=== PATIENT | female | born 1950 | race Caucasian/White ===

== ENCOUNTER 2017-11-29 09:06 | Emergency (ER) | payer OTHER ==
[~2017-11-29] VITALS: Ht 157.5 cm; Wt 86.6 kg
--- NOTE | ~2017-11-29 | EKG ---
[address] [place] [address] ELECTROCARDIOGRAM REPORT Name: DANNA ARCHULETA [facility] [id number] Admission: 11/29/17 Attend Phys: Discharge: 11/29/17 Date of : 46 Report #: [id number] THIS REPORT FOR: //name// 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 11/29/17 1632 1242 1242 Jimenez Burris MD, FACC /EPI
[2017-11-29 11:33] LABS: URINE BILIRUBIN NEGATIVE (Negative); URINE BLOOD NEGATIVE (Negative); URINE CLARITY CLEAR; URINE COLOR YELLOW; URINE GLUCOSE-RANDOM* NEGATIVE (Negative); URINE KETONES NEGATIVE (Negative); URINE LEUKOCYTES NEGATIVE (Negative); URINE NITRITE NEGATIVE (Negative); URINE PROTEIN (DIPSTICK) NEGATIVE (Negative); URINE SPECIFIC GRAVITY <= 1.005 (1.005-1.035); URINE UROBILINOGEN 0.2 E.U./dl (0.2-1.0)
[2017-11-29 13:03] LABS: BASOPHILS 0.8 % (0.0-2.0); EOSINOPHILS 1.8 % (0.0-3.0); HEMOGLOBIN 13.1 gm/dL (12.0-15.0); LYMPHOCYTES 43.8 % (24.0-44.0); MCH 31.4 pg (26.0-34.0); MCHC 33.5 g/dL (28.0-37.0); MCV 93.6 fL (80.0-100.0); PLATELET COUNT 247 thou/uL (150-400); POLYS 43.6 % (36.0-66.0); RBC 4.16 mil/uL (4.20-5.00); WBC 4.7 thou/uL (4.0-11.0)
[2017-11-29 13:12] LABS: CALCIUM 8.4 mg/dL (8.5-10.1); CREATININE 0.7 mg/dL (0.6-1.0)
[2017-11-29 13:18] LABS: ALBUMIN 3.3 g/dL (3.4-5.0); TOTAL BILIRUBIN 0.9 mg/dL (<0.1-1.0); TOTAL PROTEIN 6.5 g/dL (6.4-8.2)
[2017-11-29] MEDS ORDERED: BUTALB-APAP-CA1 EACH PO (13:38)
== END 2017-11-29 13:54 | disposition home or self-care (01) ==
LOC: ER 09:06
PROVIDERS: Nurse Practitioner Family
DX: R51 Headache (principal); G89.29 Other chronic pain; R10.9 Unspecified abdominal pain; I10 Essential (primary) hypertension; Z90.710 Acquired absence of both cervix and uterus

== ENCOUNTER 2017-12-05 22:32 | Emergency (ER) | payer OTHER ==
[~2017-12-05] VITALS: Ht 157.5 cm; Wt 86.6 kg
--- NOTE | ~2017-12-05 | EKG ---
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1950 Requested By: Tonio Marley Order Number: [id number] MD: Jimenez Burris Measurements Intervals [place] Rate: 78 P: 3 [place]: 144 QRS: -17 QRSD: 95 T: 16 QT: 396 QTc: 452 Interpretive Statements Sinus rhythm No significant abnormality Compared to ECG 11/29/2017 12:42:02 No significant changes Electronically Signed On 12-06-2017 8:11:14 [employer] SUPERVIS[employer] by Jimenez Burris [email or web address] <ELECTRONICALLY SIGNED> By: Jimenez Burris MD, [facility] 12/06/17 0811 2318 2318 Jimenez Burris MD, FACC /EPI
[~2017-12-05 22:32] MED LIST: BUTALB-APAP-CA1 EACH PO
[2017-12-05 23:54] LABS: HEMOGLOBIN 14.2 gm/dL (12.0-15.0); MCH 31.6 pg (26.0-34.0); MCHC 33.9 g/dL (28.0-37.0); MCV 93.3 fL (80.0-100.0); RBC 4.5 mil/uL (4.20-5.00); RDW 14.3 % (10.5-14.5)
[2017-12-06 00:01] LABS: ANION GAP 8 mmol/L (7-16); BUN 16 mg/dL (7-18); CALCIUM 9.8 mg/dL (8.5-10.1); CHLORIDE 100 mmol/L (98-107); CO2 32 mmol/L (21-32); CREATININE 0.8 mg/dL (0.6-1.0); GLUCOSE 117 mg/dL (74-106); SODIUM 140 mmol/L (136-145)
[2017-12-06] MEDS ORDERED: BENAZEPRIL-HCT1 EA11 PO (00:10)
[2017-12-06] MEDS ORDERED: OMEPRAZOLE40 MG PO (00:10)
[2017-12-06 00:11] LABS: ALBUMIN 3.9 g/dL (3.4-5.0); LIPASE 199 U/L (73-393); SGOT 14 U/L (15-37); SGPT 24 U/L (30-65); TOTAL BILIRUBIN 0.5 mg/dL (<0.1-1.0); TOTAL PROTEIN 7.8 g/dL (6.4-8.2); TROPONIN-I < 0.04 ng/mL (<0.06)
== END 2017-12-06 00:50 | disposition home or self-care (01) ==
LOC: ER 22:32
PROVIDERS: Emergency Medicine
DX: R10.13 Epigastric pain (principal); I10 Essential (primary) hypertension; Z90.710 Acquired absence of both cervix and uterus

== ENCOUNTER → 2018-07-20 | Outpatient (CLI) | payer OTHER ==
[~2018-07-20] MED LIST changes: +BENAZEPRIL-HCT1 EA11 PO; +OMEPRAZOLE40 MG PO
== END ==
LOC: RAD 09:59
DX: M47.816 Spondylosis without myelopathy or radiculopathy, lumbar region (principal); M47.814 Spondylosis without myelopathy or radiculopathy, thoracic region; M47.812 Spondylosis without myelopathy or radiculopathy, cervical region; M41.86 Other forms of scoliosis, lumbar region; M48.02 Spinal stenosis, cervical region; M48.04 Spinal stenosis, thoracic region; M25.78 Osteophyte, vertebrae; G89.29 Other chronic pain; I10 Essential (primary) hypertension

== ENCOUNTER → 2018-07-27 | Outpatient (CLI) | payer OTHER | LOC: RAD 08:41 | DX: Z12.31 Encounter for screening mammogram for malignant neoplasm of breast (principal) ==

== ENCOUNTER → 2018-08-17 | Outpatient (CLI) | payer OTHER ==
--- NOTE | ~2018-08-17 | SLE ---
[facility] [place] [address] POLYSOMNOGRAPHY STUDY Name: DANNA ARCHULETA Room [facility]#: [id number] Admission: 08/17/18 Attend Phys: Augusto Myers MD Discharge: Date of : 46 Report #: [id number] THIS REPORT FOR: //name// CC: Augusto Dias MD DATE OF SERVICE: 08/18/2018 ATTENDING PHYSICIAN: Dr. Drake Dias. The patient is 68 years old who weighs 180 pounds and 63 inches tall with a BMI of 31.9. The patient's [place] score was not available. Sleep study was performed at [facility]. This was a diagnostic study. During the night study, the patient spent 505 minutes in bed and slept for 384 minutes with a sleep efficiency of 76%. Sleep latency was 63.3 minutes with a REM latency of 106 minutes. Overall, sleep architecture showed normal stage 1 sleep, increased stage 2 sleep, normal slow wave and reduced REM sleep, which was 15% of the total sleep time. During the night study, the patient had no apneas and 15 hypopneas. The patient's apnea hypopnea index was only 2.3 per hour for the entire night, REM index of 6 per hour, supine index of 2.2 per hour. EKG monitoring revealed an average heart rate of 63 beats per minute with a maximum of 85 beats per minute. No sustained arrhythmias were observed. PLMs were seen at an index of 14 per hour and 4 per hour caused EEG arousals. Nocturnal oximetry study revealed an average oxygen saturation of 96% with a lowest of 88%. Only 0.5 minutes were spent in oxygen saturation less than 90%. Due to low AHI, the patient did not meet the split night criteria for CPAP initiation. IMPRESSION: 1. No clinically significant sleep disorder breathing. The patient's apnea hypopnea index for the entire night was 2.3 per hour. 2. No clinically significant nocturnal hypoxia. 3. Mild periodic limb movements without any significant EEG arousals. This does not need to be treated. RECOMMENDATIONS: 1. The patient did not meet the split night criteria for CPAP initiation due to low AHI. [facility] [address] [place] [address] POLYSOMNOGRAPHY STUDY Name: DANNA ARCHULETA DEBORAH Room [facility]#: [id number] Admission: 08/17/18 Attend Phys: Augusto Myers MD Discharge: Date of : 46 Report #: [id number] 2. Weight loss is advised. 3. 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 <ELECTRONICALLY SIGNED> By: Augusto Myers MD 08/20/182007 1352 1438 Augusto Myers MD /nt
== END ==
LOC: SLEEPLAB 10:28
DX: G47.61 Periodic limb movement disorder (principal)

== ENCOUNTER 2018-11-16 14:04 | Emergency (ER) | payer OTHER ==
[~2018-11-16] VITALS: Ht 152.4 cm; Wt 54.4 kg
[2018-11-16] MEDS ORDERED: AMITRIPTYLINE H10 M3 PO (15:04)
[2018-11-16 15:28] LABS: URINE BILIRUBIN NEGATIVE (Negative); URINE BLOOD TRACE (Negative); URINE CLARITY SL CLOUDY; URINE COLOR YELLOW; URINE GLUCOSE-RANDOM* NEGATIVE (Negative); URINE KETONES NEGATIVE (Negative); URINE NITRITE-REFLEX NEGATIVE (Negative); URINE PROTEIN (DIPSTICK) NEGATIVE (Negative); URINE UROBILINOGEN 0.2 E.U./dl (0.2-1.0)
[2018-11-16 15:29] LABS: URINE LEUKOCYTES-REFLEX 3+ (Negative)
[2018-11-16 15:32] LABS: CASTS None Seen /LPF (None Seen); CRYSTALS None Seen /LPF (None Seen); SQUAMOUS 4-10 Moderate /LPF (0-3)
[2018-11-16 15:33] LABS: URINE RBC 0-2 Rare /HPF (0-2); URINE WBC-REFLEX 6-15 Few /HPF (0-5)
[2018-11-16] MEDS ORDERED: KEFLEX500 M1 PO (15:47)
[2018-11-16] MEDS ORDERED: MOBIC15 MG PO (15:47)
[2018-11-16 15:50] VITALS: BP 130/90
== END 2018-11-16 15:50 | disposition home or self-care (01) ==
LOC: ER 14:04
PROVIDERS: Emergency Medicine
DX: N39.0 Urinary tract infection, site not specified (principal); I10 Essential (primary) hypertension; Z88.7 Allergy status to serum and vaccine; Z90.710 Acquired absence of both cervix and uterus

== ENCOUNTER → 2019-07-10 | Outpatient (CLI) | payer OTHER ==
[~2019-07-10] MED LIST changes: +AMITRIPTYLINE H10 M3 PO; +KEFLEX500 M1 PO; +MOBIC15 MG PO
== END ==
LOC: RAD 13:54
DX: M47.816 Spondylosis without myelopathy or radiculopathy, lumbar region (principal); M48.062 Spinal stenosis, lumbar region with neurogenic claudication; M48.07 Spinal stenosis, lumbosacral region; M41.86 Other forms of scoliosis, lumbar region; M43.16 Spondylolisthesis, lumbar region